=== PATIENT | female | born 1970 | race Caucasian/White ===

== ENCOUNTER 2023-09-06 19:33 | Emergency (ER) | payer OTHER, SELFPAY ==
--- NOTE | ~2023-09-06 | XR_ITS ---
EXAMINATION: XR chest 2V 09/06/2023 20:13 INDICATION: Chest tightness. Hypertension. PROCEDURE: 2 view chest COMPARISON: No prior studies for comparison. FINDINGS: The lungs are clear. The cardiomediastinal silhouette is within normal limits. There are no pleural effusions. There is no pneumothorax suspected. There is a calcified granuloma in the cole gula. IMPRESSION: 1: NO ACUTE CARDIOPULMONARY DISEASE. Reviewed, dictated and finalized at location A.
[2023-09-06 19:38] VITALS: BP 157/108; PULSE 116; RESP 19; TEMP 36.4; O2SAT 99
--- NOTE | 2023-09-06 19:38 | ECG_ITS ---
Measurements Intervals [place] Rate: 106 P: 67 NV: 137 QRS: 47 QRSD: 77 T: 62 QT: 326 QTc: 433 Interpretive Statements SINUS TACHYCARDIA LEFT ATRIAL ENLARGEMENT BORDERLINE ST-T WAVE ABNORMALITY- ANT/HIGH LAT LEADS BASELINE ARTIFACT- V3 ABNORMAL ECG NO PREVIOUS ECG AVAILABLE FOR COMPARISON Electronically Signed On 09-06-2023 19:52:17 CDT by Joesph Zuniga D.O.
[2023-09-06] MEDS: ASPIRIN 81 MG CHEWABLE TABLET 324 MG PO (19:52)
[2023-09-06 19:56] LABS: Basophils Percent Auto 0.5 % (0.2-1.2); Eosinophils Absolute Auto 0.2 K/mm3 (0-0.3); Eosinophils Percent Auto 2.1 % (0-4.4); Hematocrit 41.8 % (37.0-47.0); Hemoglobin 13.8 g/dL (12.0-15.0); Immature Granulocyte Absolute 0.02 K/mm3 (0.00-0.031); Immature Granulocyte Percent A 0.3 % (0-0.5); Lymphocytes Absolute Auto 2.56 K/mm3 (0.9-3.2); Lymphocytes Percent Auto 33.9 % (18.3-44.2); Mean Corpuscular Hemoglobin 30.3 pg (26-34); Mean Corpuscular Volume 91.7 fl (80-100); Monocytes Absolute Auto 0.5 K/mm3 (0.1-0.6); Monocytes Percent Auto 6.3 % (2.6-8.5); Neutrophils Absolute Auto 4.3 K/mm3 (1.3-6.7); Neutrophils Percent Auto 56.9 % (45.5-73.1); Platelet Count Result 264 k/mm3 (150-375); Red Blood Count 4.56 M/mm3 (4.2-5.4); Red Cell Distribution Width 12.3 % (11.5-14.5); White Blood Count 7.6 K/mm3 (4.5-10.0)
[2023-09-06 20:07] LABS: INR 0.9; Prothrombin Time 12.1 Seconds (11.1-14.7)
[2023-09-06 20:08] LABS: Partial Thromboplastin Time 27.5 Seconds (22.3-36.8)
[2023-09-06 20:12] LABS: Alanine Aminotransferase 24 U/L (6-35); Albumin Level 4.3 g/dL (3.5-5.1); Alkaline Phosphatase 73 U/L (38-126); Anion Gap 7 mmol/L (8-16); Aspartate Amino Transferase 23 U/L (14-36); Bilirubin,Total 0.5 mg/dL (0.2-1.3); Blood Urea Nitrogen 16 mg/dL (7-17); Calcium 9.6 mg/dL (8.4-10.2); Carbon Dioxide 29 mmol/L (22-30); Chloride 102 mmol/L (98-107); Estimated CRCL calculation 97 ml/min; Estimated Glomerular Filt Rate > 60; Glucose 116 mg/dL (65-110); Lipase 71 U/L (23-300); Sodium 138 mmol/L (137-145)
[2023-09-06 20:24] LABS: Troponin I < 0.012 ng/mL (0.000-0.034)
[2023-09-06 20:32] LABS: Influenza A QL RT-PCR Negative (Negative); Influenza B QL RT-PCR Negative (Negative); RSV RNA, RT-PCR Negative (Negative); SARS-CoV-2 RNA PCR Negative (Negative)
[2023-09-06] MEDS: KETOROLAC 15 MG/ML VIAL (*BKC) IV PUSH (20:46)
[2023-09-06] MEDS: diphenhydrAMINE HCl INJ 50 MG/ML VIAL 25 MG IV PUSH ×2 (20:48→21:07)
[2023-09-06] MEDS: PROCHLORPERAZINE EDISYLATE 10 MG/2 ML VIAL IV PUSH (20:50)
[2023-09-06] MEDS: ACETAMINOPHEN 500 MG TABLET 1000 MG PO (20:50)
[2023-09-06] MEDS: SODIUM CHLORIDE 0.9% IV 1,000 ML 999 ML IV CONT (20:50)
--- NOTE | 2023-09-06 21:07 | PC.NURSE ---
Pt reports feeling restless. EDP notified, new orders placed.
[2023-09-06 21:10] VITALS: BP 119/70; PULSE 98; RESP 18; O2SAT 100
--- NOTE | 2023-09-06 21:17 | ED.GENADULT ---
HPI - General Adult General Chief complaint: Chest Pain Stated complaint: headache, HTN, chest tightness, SOB Time Seen by Provider: 09/06/23 19:40 History of Present Illness HPI narrative: This is a 53-year-old female presenting with chief complaint of headache. Patient says that the headache is a throbbing headache range. She has had headaches this in past although none recently. It was not maximal in onset, slowly getting worse. The last 2 days she has had flu-like symptoms with headache, chest congestion tightness and some sinus congestion. Patient has a sick grandchild at home she takes care of. Patient denies fever chills, nausea vomiting diarrhea. Patient states that she just feels off. Related Data Allergies Allergy/AdvReac Type Severity Reaction Status Date / Time iodine Allergy Itching Verified 09/06/23 19:51 Penicillins Allergy Itching Verified 09/06/23 19:51 Exam Narrative: APPEARANCE: No apparent distress. Head: atraumatic. EYES: EOMI, NOSE: Atraumatic NECK: Trachea midline RESPIRATORY: No increased rate of breathing , clear to auscultation, speaking full sentences, 100 on room air CARDIOVASCULAR: RRR, no peripheral edema ABDOMINAL: Non-distended soft nontender guarding rebound MUSCULOSKELETAl: No obvious deformities NEURO: Alert. Moving 4/4 extremities SKIN:: Warm, dry. Normal color PSYCHIATRIC: Normal affect Course Vital Signs Vital signs: Vital Signs Temperature 97.6 F 09/06/23 19:38 Pulse Rate 116 H 09/06/23 19:38 Respiratory Rate 19 09/06/23 19:38 Blood Pressure 157/108 H 09/06/23 19:38 Pulse Oximetry 99 09/06/23 19:38 Oxygen Delivery Room Air 09/06/23 19:38 Temperature 97.6 F 09/06/23 19:38 Pulse Rate 79 09/06/23 23:25 Respiratory Rate 14 09/06/23 23:25 Blood Pressure 119/70 09/06/23 21:10 Pulse Oximetry 99 09/06/23 23:25 Oxygen Delivery Room Air 09/06/23 19:43 Medical Decision Making MDM Narrative Medical decision making narrative: -Course: 53-year-old female presenting with headache and flu-like symptoms. Given migraine cocktail with some improvement. Re-evaluation headache has improved. vital signs back to normal. Her workup was negative. Patient's presentation was consistent with viral illness. Discharge home with supportive care. -DDX includes but is not limited to: COVID flu viral illness migraine pneumonia, bronchitis -Co-morbidities complicating care: history of migraines -Social determinants of health: patient is trying to get disability for arthritis and takes care of her grandchild. occasional alcohol, vapes, denies drug use -Independent interpretation of studies: white count normal metabolic panel normal. Troponins negative x2. Viral swabs negative. Chest x-ray unremarkable. Independent EKG interpretation: Rhythm [sinus], Rate [106], Sellers -[normal], CA -[normal], QRS [narrow], QTC [normal], T waves -[negative for concerning inversions], ST Segments - [Negative for concerning elevations] Final interpretations: sinus tach -Interventions: Aspirin, Tylenol, Toradol Benadryl, Compazine, normal saline 1L -Shared decision making / Disposition:discharged Vital Signs Vital Signs: Vital Signs Temperature 97.6 F 09/06/23 19:38 Pulse Rate 116 H 09/06/23 19:38 Respiratory Rate 19 09/06/23 19:38 Blood Pressure 157/108 H 09/06/23 19:38 Pulse Oximetry 99 09/06/23 19:38 Oxygen Delivery Room Air 09/06/23 19:38 Temperature 97.6 F 09/06/23 19:38 Pulse Rate 79 09/06/23 23:25 Respiratory Rate 14 09/06/23 23:25 Blood Pressure 119/70 09/06/23 21:10 Pulse Oximetry 99 09/06/23 23:25 Oxygen Delivery Room Air 09/06/23 19:43 Lab Data 09/06/23 19:50 09/06/23 19:50 Labs: Lab Results 09/06/23 09/06/23 Range/Units 19:50 22:40 WBC 7.6 (4.5-10.0) K/mm3 RBC 4.56 (4.2-5.4) M/mm3 Hgb 13.8 (12.0-15.0) g/dL Hct 41.8 (37.0-47.0) % MCV
--- NOTE | 2023-09-06 22:27 | ECG_ITS ---
Measurements Intervals [place] Rate: 69 P: 53 MN: 155 QRS: 58 QRSD: 80 T: 63 QT: 388 QTc: 417 Interpretive Statements SINUS RHYTHM NORMAL ECG COMPARED TO ECG 09/06/2023 19:42:58 SINUS RHYTHM NOW PRESENT Electronically Signed On 09-07-2023 10:38:16 CDT by Joesph Zuniga D.O.
[2023-09-06 23:25] VITALS: PULSE 79; RESP 14; O2SAT 99
[2023-09-06 23:29] LABS: Troponin I < 0.012 ng/mL (0.000-0.034)
[2023-09-06 23:51] VITALS: BP 138/77; PULSE 71; RESP 14; O2SAT 97
== END 2023-09-06 23:52 | disposition home or self-care (01) ==
PROVIDERS: Emergency Provider Emergency Medicine
DX: B34.9 Viral infection, unspecified (principal); Z20.822 Contact with and (suspected) exposure to COVID-19
CPT/HCPCS: 36415; 71046; 80053; 83690; 84484; 85025; 85610; 85730; 87637; 93005; 96361; 96374; 96375; 99284; A9270; J0780; J1200; J1885; J7030

== ENCOUNTER 2024-01-03 12:16 | Outpatient (CLI) | payer MEDICAID, SELFPAY ==
--- NOTE | ~2024-01-03 | XR_ITS ---
AP and lateral views of the left hip Clinical history: Pain Findings: No acute fracture or dislocation is seen. Osseous alignment is anatomic. There is mild dege nerative change of the left hip joint. Soft tissues are unremarkable. Impression: Mild degenerative change of the left hip joint. Reviewed, dictated and finalized at location . Impression: Mild degenerative change of the left hip joint.
--- NOTE | ~2024-01-03 | XR_ITS ---
Lumbosacral Spine: AP and lateral views Clinical History: Pain Findings: The normal lordotic curve is maintained. No fracture seen. There is 8mm anterolisthesis of L4 over L5. There is advanced degenerative disc narrowing at L5-S1. There is severe facet arthropathy from L4 through S1. There is mild to moderate facet arthropathy the upper lumbar spine. The sacroili ac joints are normally outlined. Impression: 8 mm anterolisthesis of L4 over L5. Moderate degenerative change, as above. Reviewed, dictated and finalized at location M. Impression: 8 mm anterolisthesis of L4 over L5. Moderate degenerative change, as above.
--- NOTE | ~2024-01-03 | XR_ITS ---
Right Shoulder Technique: AP and scapular Y views were obtained. Clinical History: Pain Findings: No fracture or dislocation is seen. Osseous alignment is anatomic. The glenohumeral and acr omioclavicular joints demonstrate minimal degenerative change. Soft tissues are unremarkable. Impression: Minimal degenerative changes, as above. Reviewed, dictated and finalized at location . Impression: Minimal degenerative changes, as above.
[2024-01-03 13:00] LABS: Hematocrit 43.1 % (37.0-47.0); Hemoglobin 14.4 g/dL (12.0-15.0); Mean Corpuscular HGB Conc 33.4 g/dl (32-36); Mean Corpuscular Hemoglobin 30.4 pg (26-34); Mean Corpuscular Volume 91.1 fl (80-100); Mean Platelet Volume 9.3 fl (7.4-10.4); Platelet Count Result 333 k/mm3 (150-375); Red Blood Count 4.73 M/mm3 (4.2-5.4); White Blood Count 10.1 K/mm3 (4.5-10.0)
[2024-01-03 13:42] LABS: Alanine Aminotransferase 29 U/L (6-35); Albumin Level 4.6 g/dL (3.5-5.1); Alkaline Phosphatase 97 U/L (38-126); Anion Gap 11 mmol/L (4-12); Aspartate Amino Transferase 30 U/L (14-36); Bilirubin,Total 0.4 mg/dL (0.2-1.3); Blood Urea Nitrogen 16 mg/dL (7-17); CRP 0.6 mg/dL (<1.0); Calcium 9.2 mg/dL (8.4-10.2); Carbon Dioxide 25 mmol/L (22-30); Chloride 104 mmol/L (98-107); Estimated Glomerular Filt Rate > 60; Glucose 95 mg/dL (65-110); Potassium 4.2 mmol/L (3.4-5.0); Sodium 140 mmol/L (137-145)
[2024-01-03 13:45] LABS: Rheumatoid Factor < 12.0 IU/ML (<12)
[2024-01-03 13:51] LABS: Vitamin D 25 Hydroxy 24.8 ng/mL
[2024-01-03 14:09] LABS: Erythrocyte Sedimentation Rate 18 mm/hr (0-20)
[2024-01-04 15:39] LABS: Anti Cyclic Citrullinated Pept <16 UNITS
== END 2024-01-03 12:17 | disposition home or self-care (01) ==
PROVIDERS: PCP Nurse Practitioner Family; Visit Provider Nurse Practitioner Family
DX: M54.40 Lumbago with sciatica, unspecified side (principal); I10 Essential (primary) hypertension; M25.50 Pain in unspecified joint; Z13.228 Encounter for screening for other metabolic disorders; Z13.29 Encounter for screening for other suspected endocrine disorder; E55.9 Vitamin D deficiency, unspecified; Z78.0 Asymptomatic menopausal state; Z13.0 Encounter for screening for diseases of the blood and blood-forming organs and certain disorders involving the immune mechanism; M51.36 Other intervertebral disc degeneration, lumbar region; M19.011 Primary osteoarthritis, right shoulder; M16.12 Unilateral primary osteoarthritis, left hip
CPT/HCPCS: 36415; 72100; 73030; 73502; 80053; 82306; 84443; 85027; 85652; 86038; 86039; 86140; 86200; 86430